=== PATIENT | male | born 1940 | race Caucasian/White ===

== ENCOUNTER 2019-10-07 13:50 | Emergency (ER) | payer MEDICARE, BC ==
[2019-10-07] MEDS ORDERED: Tetan/Diph/Pertus SYR(Tdap)* 0.5 ML SYR(BOOSTRIX) use SYR contains LATEX IM ONE (14:55)
[2019-10-07] MEDS ORDERED: Lidocaine 2% w EPI 1:100,000* 20 ML MDV VIAL INJ ONE (14:56)
--- NOTE | 2019-10-07 14:57 | ED ---
Head Injury - HPI Summary HPI Summary: Patient is a 79-year-old male who presents emergency department for head injury that occurred just prior to arrival. Patient and family visiting [place] on a bus tour [place]. Pt. states he tripped over uneven ground and struck his face. Negative LOC. Is not anticoagulated. Pt. c/o facial pain and laceration. Denies dizziness, CP, SOB, recent illness. Unaware of last tetanus immunization. Is not anticoagulated. Sxs are moderate in severity. No current modifying factors. 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 Pain Intensity: 1 - Allergies/Home Medications Allergies/Adverse Reactions: Allergies Allergy/AdvReac Type Severity Reaction Status Date / Time No Known Allergies Allergy Verified 10/07/19 14:05 PMH/Surg Hx/FS Hx/Imm Hx Previously Healthy: Yes Infectious Disease History: No Infectious Disease History: Denies: Traveled Outside the [place] in Last 30 Days - Family History Known Family History: Positive: Non-Contributory - Social History Occupation: Retired Lives: With Family Alcohol Use: None Substance Use Type: Reports: None Smoking Status (MU): Never Smoked Tobacco Review of Systems Eyes: Negative Negative: Photophobia, Blurred Vision ENT: Negative Cardiovascular: Negative Negative: Palpitations, Chest Pain Respiratory: Negative Negative: Shortness Of Breath, Cough Gastrointestinal: Negative Musculoskeletal: Negative Positive: Other - Facial laceration Positive: Headache. Negative: Weakness, Paresthesia, Numbness, Syncope, Slurred Speech All Other Systems Reviewed And Are Negative: Yes Physical Exam Triage Information Reviewed: Yes Vital Signs On Initial Exam: Initial Vitals Temp Pulse Resp BP Pulse Ox 97.8 F 72 16 164/87 97 10/07/19 14:04 10/07/19 14:04 10/07/19 14:04 10/07/19 14:04 10/07/19 14:04 Vital Signs Reviewed: Yes Appearance: Positive: Well-Appearing - Pt. sitting up in bed in NAD. Answers questions appropriately. present. Skin: Positive: Warm, Dry Head/Face: Positive: Normal Head/Face Inspection - 5cm irregular shaped laceration noted above right eyebrow. Mild bleeding. 1.5 cm laceration noted above right aspect of lip. Eyes: Positive: Normal, EOMI, HUNG, Conjunctiva Clear Neck: Positive: Supple, Nontender Respiratory/Lung Sounds: Positive: Clear to Auscultation, Breath Sounds Present Cardiovascular: Positive: Normal, RRR Musculoskeletal: Positive: Normal, Strength/ROM Intact Neurological: Positive: Normal, Alert, Oriented to Person Place, Time, CN Intact II-III Psychiatric: Positive: Affect/Mood Appropriate - Tiana Coma Scale Best Eye Response: 4 - Spontaneous Best Motor Response: 6 - Obeys Commands Best Verbal Response: 5 - Oriented Coma Scale Total: 15 Procedures - Sedation Patient Received Moderate/Deep Sedation with Procedure: No - Laceration/Wound Repair 1 Location: head - Above right eyebrow Description: Irregular Anesthesia: Local, 1.0%, Lido, Bicarb Length, Depth and Shape: 5 cm irregular Betadine Prep?: No - hibiclens Irrigated w/ Saline (ccs): 150 Laceration/Wound Explored: clean Closure: Single Layer Suture Type: Nylon Number of Sutures: 9 Layer Closure?: No Sterile Dressing Applied?: Yes 2 Location: face - above lip Description: Irregular Anesthesia: Local, 1.0%, Lido Length, Depth and Shape: 1.5cm Irrigated w/ Saline (ccs): 50 Laceration/Wound Explored: clean Closure: Single Layer Suture Type: Nylon Number of Sutures: 3 Layer Closure?: No Sterile Dressing Applied?: Yes Diagnostics - Vital Signs Vital Signs Temp Pulse Resp BP Pulse Ox 10/07/19 14:04 97.8 F 72 16 164/87 97 - Laboratory Lab Statement: Any lab studies that have been ordered have been reviewed, and results considered in the medical decision making process. Head Injury Course/Dx Course Of Treatment: Pt. presenting with facial injury after a mechanical fall. Tetanus updated. CT scans obtained to r/o intracranial bleed, skull fx, facial fx. Lacerations repaired as noted above. CT scan brain and negative for acute findings per radiology. Facial ct shows bilateral nasal fx per radiology. Results discussed. Pt. from out of town. CTs provided on CDs. Advised pt. he will need to f.u [facility]NT within one week for nasal fx. Suture removal in 5-7 days. To ice and elevate. Tylenol for pain as directed To return to er if sxs change or worsen. Pt. and understand and agree with plan. - Diagnoses Differential Diagnosis/HQI/PQRI: Cerebral Contusion, Cervical Sprain, Concussion Without LOC, Contusion, Hematoma, Intracranial Bleed, Laceration, Nasal Fracture, Orbital Fracture, Skull Fracture Provider Diagnoses: Head injury, Face lacerations, Nasal bone fractures Discharge ED - Sign-Out/Discharge Documenting (check all that apply): Patient Departure - Discharge Plan Condition: Improved Disposition: HOME Patient Education Materials: Nasal Fracture (ED), Head Injury (ED), Facial Laceration (ED) Referrals: No Primary Care Phys,NOPCP [Primary Care Provider] - Additional Instructions: Call your PCP on Thursday to schedule a follow up appointment and for referral to an ENT physician for your nasal fractures within one week Suture removal in 7 days Keep wound clean and dry Ice and elevate head intermittently Tylenol for pain as directed Return to ER if symptoms change or worsen - Billing Disposition and Condition Condition: IMPROVED Disposition: Home
[2019-10-07] MEDS ORDERED: Acetaminophen TAB* 325 MG PO ONE (15:08)
[2019-10-07] MEDS ORDERED: Bacitracin OINTMENT* 0.5% 0.5 oz TUBE TOPICAL ONE (16:42)
[2019-10-07 18:09] VITALS: BP 162/97
== END 2019-10-07 18:08 | disposition home or self-care (01) ==
LOC: ED 13:50
DX: S01.81XA Laceration without foreign body of other part of head, initial encounter (principal); S02.2XXA Fracture of nasal bones, initial encounter for closed fracture; Z23 Encounter for immunization; W01.198A Fall on same level from slipping, tripping and stumbling with subsequent striking against other object, initial encounter; Y92.480 Sidewalk as the place of occurrence of the external cause
CPT/HCPCS: 12014; 70450; 70486; 72125; 90471; 90715; 99282; A9270-GY